=== PATIENT | female | born 1950 ===

== ENCOUNTER → 2024-02-22 | Outpatient (REF) | LOC: M CFLAB 14:14 | PROVIDERS: ATTEND Physician Assistant | DX: N39.0 Urinary tract infection, site not specified (principal) ==

== ENCOUNTER → 2024-10-14 | Outpatient (REF) | payer MEDICARE, OTHER ==
[2024-10-17 13:47] LABS: HPV APTIMA Not Detected (Not Detected)
== END ==
LOC: M CFLAB 13:09
DX: Z12.4 Encounter for screening for malignant neoplasm of cervix (principal)
CPT/HCPCS: 87624; G0123